=== PATIENT | male | born 1950 | race African-American/Black ===

== ENCOUNTER 2021-03-11 13:55 | Emergency (ER) | payer OTHER ==
[~2021-03-11] VITALS: Ht 177.8 cm; Wt 77.1 kg
== END 2021-03-11 18:34 | disposition home or self-care (01) ==
LOC: ER 13:55
DX: S00.83XA Contusion of other part of head, initial encounter (principal); R55 Syncope and collapse; W18.39XA Other fall on same level, initial encounter; Y93.11 Activity, swimming; Y92.59 Other trade areas as the place of occurrence of the external cause; Y99.8 Other external cause status; E86.0 Dehydration